=== PATIENT | female | born 1990 | race Caucasian/White ===

== ENCOUNTER 2018-07-17 17:33 | Emergency (ER) | payer MEDICAID ==
[~2018-07-17] VITALS: Ht 170.2 cm; Wt 73.7 kg
[~2018-07-17 17:33] MED LIST: NOCURR
[2018-07-17 18:13] VITALS: BP 140/68
== END 2018-07-17 18:10 | disposition left against medical advice (07) ==
LOC: EMS 17:35
DX: S61.411A Laceration without foreign body of right hand, initial encounter (principal); Y04.0XXA Assault by unarmed brawl or fight, initial encounter; Y93.89 Activity, other specified; Y92.89 Other specified places as the place of occurrence of the external cause; Y99.8 Other external cause status

== ENCOUNTER 2019-01-11 03:59 | Emergency (ER) | payer MEDICAID | END 2019-01-11 04:45 | disposition left against medical advice (07) | LOC: EMS 04:01 | DX: M79.646 Pain in unspecified finger(s) (principal); Z53.21 Procedure and treatment not carried out due to patient leaving prior to being seen by health care provider ==